=== PATIENT | male | born 1960 | race Asian ===

== ENCOUNTER 2023-06-06 21:49 | Inpatient (IN) | payer OTHER ==
[~2023-06-06] VITALS: Ht 172.7 cm; Wt 69.1 kg
[2023-06-08] MEDS ORDERED: TACR1CAP22 PO (01:35)
[2023-06-08] MEDS ORDERED: APIX5TAB PO (01:35)
[2023-06-08] MEDS ORDERED: TAMS-11 PO (01:35)
[2023-06-08] MEDS ORDERED: ATOR10TA69 PO (01:35)
[2023-06-08] MEDS ORDERED: CARV12.545 PO (01:35)
[2023-06-08] MEDS ORDERED: ASPI-1406 PO (01:35)
[2023-06-08] MEDS ORDERED: LOSA50TA41 PO (01:35)
[2023-06-08] MEDS ORDERED: MYCO250C MT (01:35)
[2023-06-08] MEDS ORDERED: LEVO150T8 PO (01:35)
[2023-06-08] MEDS ORDERED: FOLI-43 PO (01:35)
[2023-06-08] MEDS ORDERED: TACR1CAP22 MT (01:35)
[2023-06-15 23:30] VITALS: BP 140/119; PULSE 98; RESP 10
[2023-06-15 23:45] VITALS: BP 133/74; PULSE 104; RESP 10
[2023-06-15] MEDS ORDERED: PHENYLEPHRINE 100 MG in DEXT 5% WATER 240 ML IV PRN (23:45)
[2023-06-15] MEDS ORDERED: DEXTROSE 50% WATER 50ML SYRINGE IV PRN (23:45)
[2023-06-16] VITALS (113 sets, daily range): BP systolic 78–192; BP diastolic 36–148; PULSE 81–146; RESP 0–26; TEMP 96.6–98.4
[2023-06-16] MEDS: VASOPRESSIN 20 UNIT in SODIUM CHLORIDE 0.9% 99 ML IV SCH ×3 (00:04→17:36)
[2023-06-16] MEDS: BLOOD SUGAR DIAGNOSTIC STRIP TEST SCH ×10 (00:05→18:00)
[2023-06-16 00:21] LABS: MEAN CORPUSCULAR HEMOGLOBIN 30.7 pg (28.0-32.0); MEAN CORPUSCULAR HGB CONC 31.5 g/dL (31.0-37.0); MEAN CORPUSCULAR VOLUME 97.5 fL (80.0-94.0); MEAN PLATELET VOLUME 10.3 fl (7.4-10.4); PLATELET 138 x1000/uL (130-400); RED BLOOD CELL COUNT 1.81 mill/uL (4.7-6.1); RED CELL DISTRIBUTION WIDTH 14.5 % (11.6-14.6); WHITE BLOOD COUNT 30.2 x1000/uL (4.5-11.0)
[2023-06-16] MEDS: INSULIN REGULAR 100U/100ML PMX 100 ML IV SCH (00:21)
[2023-06-16 00:27] LABS: DIFFERENTIAL COMMENT 1
[2023-06-16 00:28] LABS: INR 1.1; PROTHROMBIN TIME 11.3 sec (9.6-11.0)
[2023-06-16 00:30] LABS: HEMOGLOBIN. 5.6 g/dL (14.0-18.0)
[2023-06-16 00:31] LABS: HEMATOCRIT. 17.7 % (42.0-52.0)
[2023-06-16 00:44] LABS: CHLORIDE 103 mEq/L (98-107); INDEX HEMOLYSI 1 (1-3); INDEX ICTERIC 1 (1-4); INDEX LIPEMIC 1 (1-3); POTASSIUM 4.6 mEq/L (3.5-5.1); SODIUM 135 mEq/L (136-145)
[2023-06-16] MEDS ORDERED: ALBUMIN HUMAN 25GM/500ML (5%) IV NR ×2 (00:45)
[2023-06-16 00:55] LABS: ALANINE AMINOTRANSFERASE 12 IU/L (13-61); ALBUMIN 2.1 g/dL (3.4-5.0); AMYLASE 35 IU/L (25-115); ASPARTATE AMINOTRANSFERASE 53 IU/L (15-37); BILIRUBIN DIRECT 0.2 mg/dL (0.0-0.2); BILIRUBIN TOTAL 0.2 mg/dL (0.1-1.0); CALCIUM 7.8 mg/dL (8.5-10.1); CARBON DIOXIDE 20 mEq/L (21-32); CREATININE 4.4 mg/dL (0.6-1.3); GLUCOSE 203 mg/dL (70-105); LACTATE DEHYDROGENASE 473 IU/L (100-240); PHOSPHORUS 4.6 mg/dL (2.5-4.9); PROTEIN TOTAL 5.1 g/dL (6.0-8.3); UREA NITROGEN BLOOD 35 mg/dL (7-21)
[2023-06-16 01:06] LABS: CLARITY URINE CLOUDY (CLEAR); COLOR URINE YELLOW (YELLOW); GLUCOSE URINE NEGATIVE (NEGATIVE); KETONES URINE NEGATIVE (NEGATIVE); LEUKOCYTE ESTERASE URINE NEGATIVE (NEGATIVE); NITRITE URINE NEGATIVE (NEGATIVE); OCCULT BLOOD URINE 2+ (NEGATIVE); PROTEIN URINE 1+ (NEGATIVE); SPECIFIC GRAVITY URINE 1.023 (1.005-1.030); UROBILINOGEN URINE 0.2 E.U./dL (0.2-1.0)
[2023-06-16 01:08] LABS: BACTERIA URINE NONE SEEN; SQUAMOUS EPITHELIAL CELL URINE NONE SEEN /lpf (RARE/1+)
[2023-06-16] MEDS ORDERED: NOREPINEPHRINE 32 MG in DEXT 5% WATER 218 ML IV PRN (01:30)
[2023-06-16 01:36] LABS: BG BASE EXCESS -7.2 mmol/L (-2.0-2.0); BG CARBOXYHEMOGLOBIN 0.1 % (0.5-1.5); BG DEOXYHEMOGLOBIN 0.7 % (0.0-5.0); BG FRACTION INSPIRED OXYGEN 100; BG HCO3 ACT 18.8 mmol/L (22.0-26.0); BG METHEMOGLOBIN 0.3 % (0.0-1.5); BG OXYGEN SATURATION 99.3 % (92.0-98.5); BG OXYHEMOGLOBIN 98.9 % (94.0-97.0); BG PCO2 40.5 mmHg (35.0-45.0); BG PH 7.285 (7.350-7.450); BG PO2 428.8 mmHg (75.0-100.0); BG SAMPLE SITE ALINE; BG TOTAL HEMOGLOBIN 6.2 g/dL (12.0-18.0); BG VENT MODE VENT - AC
[2023-06-16 03:22] LABS: RBC URINE 0-2 /hpf (0-2)
[2023-06-16 03:24] LABS: YEAST URINE 1+
[2023-06-16] MEDS ORDERED: METHYLPREDNISOLONE SOD SUCC 2,000 MG in DEXT 5% WATER 100 ML IV NR (06:00)
[2023-06-16] MEDS ORDERED: THIAMINE HCL 500 MG in SODIUM CHLORIDE 0.9% 49 ML IV NR (06:00)
[2023-06-16] MEDS: DOBUTAMINE 250MG PREMIX 250 ML IV SCH (06:35)
[2023-06-16 07:03] LABS: BG CARBOXYHEMOGLOBIN 0.3 % (0.5-1.5); BG DEOXYHEMOGLOBIN 1.2 % (0.0-5.0); BG HCO3 ACT 17.9 mmol/L (22.0-26.0); BG METHEMOGLOBIN 0.4 % (0.0-1.5); BG OXYGEN SATURATION 98.8 % (92.0-98.5); BG OXYHEMOGLOBIN 98.1 % (94.0-97.0); BG PCO2 33.3 mmHg (35.0-45.0); BG PH 7.349 (7.350-7.450); BG PO2 438.1 mmHg (75.0-100.0); BG SAMPLE SITE ALINE; BG VENT MODE VENT - APRV
[2023-06-16 07:19] LABS: HEMOGLOBIN. 7.4 g/dL (14.0-18.0); MEAN CORPUSCULAR HEMOGLOBIN 30.7 pg (28.0-32.0); MEAN CORPUSCULAR HGB CONC 32.3 g/dL (31.0-37.0); MEAN CORPUSCULAR VOLUME 95.3 fL (80.0-94.0); MEAN PLATELET VOLUME 10.1 fl (7.4-10.4); PLATELET 115 x1000/uL (130-400); RED BLOOD CELL COUNT 2.42 mill/uL (4.7-6.1); RED CELL DISTRIBUTION WIDTH 14.1 % (11.6-14.6); WHITE BLOOD COUNT 30.2 x1000/uL (4.5-11.0)
[2023-06-16 07:33] LABS: CHLORIDE 105 mEq/L (98-107); INDEX HEMOLYSI 1 (1-3); INDEX ICTERIC 1 (1-4); INDEX LIPEMIC 1 (1-3); POTASSIUM 4.6 mEq/L (3.5-5.1); SODIUM 134 mEq/L (136-145)
[2023-06-16 07:35] LABS: DIFFERENTIAL COMMENT 1
[2023-06-16 07:40] LABS: INR 1.1; PARTIAL THROMBOPLASTIN TIME 32.8 sec (23.4-31.0); PROTHROMBIN TIME 11.4 sec (9.6-11.0)
[2023-06-16 07:44] LABS: CLARITY URINE TURBID (CLEAR); COLOR URINE YELLOW (YELLOW); GLUCOSE URINE NEGATIVE (NEGATIVE); KETONES URINE NEGATIVE (NEGATIVE); LEUKOCYTE ESTERASE URINE NEGATIVE (NEGATIVE); NITRITE URINE NEGATIVE (NEGATIVE); OCCULT BLOOD URINE 2+ (NEGATIVE); PROTEIN URINE 1+ (NEGATIVE); SPECIFIC GRAVITY URINE 1.025 (1.005-1.030); UROBILINOGEN URINE 0.2 E.U./dL (0.2-1.0)
[2023-06-16 07:50] LABS: ALANINE AMINOTRANSFERASE 7 IU/L (13-61); ALBUMIN 2.2 g/dL (3.4-5.0); AMYLASE 32 IU/L (25-115); ASPARTATE AMINOTRANSFERASE 62 IU/L (15-37); BILIRUBIN DIRECT 0.2 mg/dL (0.0-0.2); BILIRUBIN TOTAL 0.7 mg/dL (0.1-1.0); CALCIUM 7.9 mg/dL (8.5-10.1); CARBON DIOXIDE 20 mEq/L (21-32); CREATININE 4.6 mg/dL (0.6-1.3); GLUCOSE 84 mg/dL (70-105); LACTATE DEHYDROGENASE 511 IU/L (100-240); PHOSPHORUS 5.3 mg/dL (2.5-4.9); PROTEIN TOTAL 5.4 g/dL (6.0-8.3); UREA NITROGEN BLOOD 37 mg/dL (7-21)
[2023-06-16 07:56] LABS: SQUAMOUS EPITHELIAL CELL URINE FEW /lpf (RARE/1+)
[2023-06-16 07:58] LABS: RBC URINE 0-2 /hpf (0-2)
[2023-06-16 07:59] LABS: BACTERIA URINE TRACE
[2023-06-16] MEDS ORDERED: SODIUM BICARBONATE 8.4% 1 MEQ/ML 50ML SYR IV ONE (08:00)
[2023-06-16] MEDS: MYCOPHENOLATE MOFETIL 250MG CAPSULE PO SCH ×2 (08:54→21:43)
[2023-06-16] MEDS: TACROLIMUS 1MG CAPSULE PO SCH (08:55)
[2023-06-16] MEDS ORDERED: VANCOMYCIN 1G PREMIX 200 ML IV NR (09:00)
[2023-06-16] MEDS ORDERED: PIPERACILLIN/TAZOBACTAM 3.375GM/50ML PREMIX IV SCH (10:00)
[2023-06-16] MEDS: PIPERACILLIN/TAZOBACTAM 3.375 G in DEXTROSE 5% WATER 50 ML IV SCH ×2 (10:11→21:44)
[2023-06-16] MEDS ORDERED: ALBUMIN HUMAN 25GM/100ML (25%) IV NR (11:45)
[2023-06-16 12:13] LABS: BG BASE EXCESS -6.1 mmol/L (-2.0-2.0); BG CARBOXYHEMOGLOBIN 0.3 % (0.5-1.5); BG DEOXYHEMOGLOBIN 1.5 % (0.0-5.0); BG HCO3 ACT 15.9 mmol/L (22.0-26.0); BG METHEMOGLOBIN 0.1 % (0.0-1.5); BG OXYGEN SATURATION 98.5 % (92.0-98.5); BG OXYHEMOGLOBIN 98.1 % (94.0-97.0); BG PCO2 21.2 mmHg (35.0-45.0); BG PH 7.494 (7.350-7.450); BG PO2 173.9 mmHg (75.0-100.0); BG SAMPLE SITE ALINE; BG TOTAL HEMOGLOBIN 8.9 g/dL (12.0-18.0); BG VENT MODE VENT - APRV
[2023-06-16 12:14] LABS: CLARITY URINE CLOUDY (CLEAR); COLOR URINE YELLOW (YELLOW); GLUCOSE URINE NEGATIVE (NEGATIVE); KETONES URINE NEGATIVE (NEGATIVE); LEUKOCYTE ESTERASE URINE TRACE (NEGATIVE); NITRITE URINE NEGATIVE (NEGATIVE); OCCULT BLOOD URINE 2+ (NEGATIVE); PROTEIN URINE 1+ (NEGATIVE); SPECIFIC GRAVITY URINE 1.025 (1.005-1.030); UROBILINOGEN URINE 0.2 E.U./dL (0.2-1.0)
[2023-06-16 12:23] LABS: HEMATOCRIT. 24.5 % (42.0-52.0); MEAN CORPUSCULAR HGB CONC 32.7 g/dL (31.0-37.0); MEAN CORPUSCULAR VOLUME 94.6 fL (80.0-94.0); MEAN PLATELET VOLUME 10.1 fl (7.4-10.4); PLATELET 75 x1000/uL (130-400); RED BLOOD CELL COUNT 2.59 mill/uL (4.7-6.1); RED CELL DISTRIBUTION WIDTH 14.6 % (11.6-14.6)
[2023-06-16 12:25] LABS: INR 1.2; PARTIAL THROMBOPLASTIN TIME 29.7 sec (23.4-31.0); PROTHROMBIN TIME 12.6 sec (9.6-11.0)
[2023-06-16 12:28] LABS: COARSE GRANULAR CASTS URINE 0-5 /lpf; SQUAMOUS EPITHELIAL CELL URINE FEW /lpf (RARE/1+)
[2023-06-16 12:29] LABS: RBC URINE 0-2 /hpf (0-2)
[2023-06-16 12:29] LABS: CHLORIDE 107 mEq/L (98-107); INDEX HEMOLYSI 1 (1-3); INDEX ICTERIC 1 (1-4); INDEX LIPEMIC 1 (1-3); POTASSIUM 3.8 mEq/L (3.5-5.1); SODIUM 137 mEq/L (136-145)
[2023-06-16 12:30] LABS: BACTERIA URINE 2+
[2023-06-16 12:37] LABS: ALANINE AMINOTRANSFERASE 6 IU/L (13-61); ALBUMIN 2.1 g/dL (3.4-5.0); AMYLASE 24 IU/L (25-115); ASPARTATE AMINOTRANSFERASE 68 IU/L (15-37); BILIRUBIN DIRECT 0.4 mg/dL (0.0-0.2); BILIRUBIN TOTAL 0.9 mg/dL (0.1-1.0); CALCIUM 8.3 mg/dL (8.5-10.1); CARBON DIOXIDE 21 mEq/L (21-32); CREATININE 4.3 mg/dL (0.6-1.3); GLUCOSE 205 mg/dL (70-105); LACTATE DEHYDROGENASE 531 IU/L (100-240); PHOSPHORUS 3.3 mg/dL (2.5-4.9); PROTEIN TOTAL 4.9 g/dL (6.0-8.3); UREA NITROGEN BLOOD 39 mg/dL (7-21)
[2023-06-16 12:45] LABS: DIFFERENTIAL COMMENT 1
[2023-06-16 13:06] LABS: PLATELET ESTIMATE DECREASED
[2023-06-16 13:11] LABS: PLATELET ESTIMATE NORMAL
[2023-06-16 13:34] LABS: NUCLEATED RED BLOOD CELLS 1 /100 WBC
[2023-06-16 13:35] LABS: PLATELET ESTIMATE SLIGHTLY DECREASED
[2023-06-16] MEDS: THIAMINE HCL 100 MG in SODIUM CHLORIDE 0.9% 49 ML IV SCH ×2 (13:47→22:30)
[2023-06-16] MEDS: METHYLPREDNISOLONE SOD SUCC 500 MG in DEXT 5% WATER 100 ML IV SCH ×2 (13:48→22:30)
[2023-06-16] MEDS ORDERED: METOLAZONE 10MG TABLET PO NR (14:30)
[2023-06-16] MEDS ORDERED: FUROSEMIDE 20MG/2ML VIAL IVP NR (14:30)
[2023-06-16] MEDS ORDERED: FUROSEMIDE 100MG/10ML VIAL IVP NR (16:45)
[2023-06-16] MEDS ORDERED: METOLAZONE 5MG TABLET PO NR (17:00)
[2023-06-16 18:09] LABS: BG BASE EXCESS -6.8 mmol/L (-2.0-2.0); BG CARBOXYHEMOGLOBIN 0.3 % (0.5-1.5); BG DEOXYHEMOGLOBIN 1.1 % (0.0-5.0); BG HCO3 ACT 16.7 mmol/L (22.0-26.0); BG METHEMOGLOBIN 0.3 % (0.0-1.5); BG OXYGEN SATURATION 98.9 % (92.0-98.5); BG OXYHEMOGLOBIN 98.3 % (94.0-97.0); BG PCO2 26.4 mmHg (35.0-45.0); BG PH 7.419 (7.350-7.450); BG PO2 200.4 mmHg (75.0-100.0); BG SAMPLE SITE ALINE; BG TOTAL HEMOGLOBIN 8.8 g/dL (12.0-18.0); BG VENT MODE VENT - APRV
[2023-06-16 18:56] LABS: HEMOGLOBIN. 7.6 g/dL (14.0-18.0); LYMPHOCYTES % 1.5 % (20.0-50.0); MEAN CORPUSCULAR HEMOGLOBIN 31.2 pg (28.0-32.0); MEAN CORPUSCULAR HGB CONC 33.1 g/dL (31.0-37.0); MEAN CORPUSCULAR VOLUME 94.2 fL (80.0-94.0); MEAN PLATELET VOLUME 10.2 fl (7.4-10.4); NEUTROPHILS % 92.5 % (40.0-76.0); PLATELET 62 x1000/uL (130-400); RED BLOOD CELL COUNT 2.44 mill/uL (4.7-6.1); RED CELL DISTRIBUTION WIDTH 14.7 % (11.6-14.6); WHITE BLOOD COUNT 15.2 x1000/uL (4.5-11.0)
[2023-06-16 19:00] LABS: CLARITY URINE CLEAR (CLEAR); COLOR URINE YELLOW (YELLOW); GLUCOSE URINE TRACE (NEGATIVE); KETONES URINE NEGATIVE (NEGATIVE); LEUKOCYTE ESTERASE URINE NEGATIVE (NEGATIVE); NITRITE URINE NEGATIVE (NEGATIVE); OCCULT BLOOD URINE 2+ (NEGATIVE); PH URINE 6.5 (4.5-8.0); PROTEIN URINE 1+ (NEGATIVE); UROBILINOGEN URINE 0.2 E.U./dL (0.2-1.0)
[2023-06-16 19:03] LABS: BACTERIA URINE NONE SEEN; SQUAMOUS EPITHELIAL CELL URINE NONE SEEN /lpf (RARE/1+)
[2023-06-16 19:04] LABS: CHLORIDE 105 mEq/L (98-107); INDEX HEMOLYSI 1 (1-3); INDEX ICTERIC 1 (1-4); INDEX LIPEMIC 1 (1-3); POTASSIUM 3.6 mEq/L (3.5-5.1); SODIUM 138 mEq/L (136-145)
[2023-06-16 19:12] LABS: ALANINE AMINOTRANSFERASE 8 IU/L (13-61); ALBUMIN 2.7 g/dL (3.4-5.0); AMYLASE 20 IU/L (25-115); ASPARTATE AMINOTRANSFERASE 72 IU/L (15-37); BILIRUBIN DIRECT 0.5 mg/dL (0.0-0.2); BILIRUBIN TOTAL 1.4 mg/dL (0.1-1.0); CALCIUM 8.2 mg/dL (8.5-10.1); CARBON DIOXIDE 18 mEq/L (21-32); GLUCOSE 272 mg/dL (70-105); LACTATE DEHYDROGENASE 574 IU/L (100-240); PHOSPHORUS 4.3 mg/dL (2.5-4.9); PROTEIN TOTAL 5.4 g/dL (6.0-8.3); UREA NITROGEN BLOOD 39 mg/dL (7-21)
[2023-06-16 19:14] LABS: INR 1.4; PARTIAL THROMBOPLASTIN TIME 34.5 sec (23.4-31.0); PROTHROMBIN TIME 14.3 sec (9.6-11.0)
[2023-06-16 19:23] LABS: DIFFERENTIAL COMMENT 1
[2023-06-16 19:29] LABS: YEAST URINE NONE SEEN
[2023-06-16] MEDS: METOLAZONE 5MG TABLET PO SCH (21:43)
[2023-06-16] MEDS: FUROSEMIDE 100MG/10ML VIAL IVP SCH (21:44)
[2023-06-17] VITALS (40 sets, daily range): BP systolic 119–192; BP diastolic 34–145; PULSE 86–119; RESP 10–18; TEMP 96.6–96.8
[2023-06-17 00:34] LABS: BG CARBOXYHEMOGLOBIN 0.3 % (0.5-1.5); BG DEOXYHEMOGLOBIN 1.9 % (0.0-5.0); BG FRACTION INSPIRED OXYGEN 30; BG HCO3 ACT 14.4 mmol/L (22.0-26.0); BG OXYGEN SATURATION 98.1 % (92.0-98.5); BG OXYHEMOGLOBIN 97.8 % (94.0-97.0); BG PCO2 23.9 mmHg (35.0-45.0); BG PH 7.399 (7.350-7.450); BG PO2 153.1 mmHg (75.0-100.0); BG SAMPLE SITE ALINE; BG TOTAL HEMOGLOBIN 9.3 g/dL (12.0-18.0); BG VENT MODE VENT - APRV
[2023-06-17] MEDS: BLOOD SUGAR DIAGNOSTIC STRIP TEST SCH ×5 (00:50→08:22)
[2023-06-17 00:55] LABS: CLARITY URINE CLEAR (CLEAR); COLOR URINE YELLOW (YELLOW); GLUCOSE URINE TRACE (NEGATIVE); KETONES URINE NEGATIVE (NEGATIVE); LEUKOCYTE ESTERASE URINE NEGATIVE (NEGATIVE); NITRITE URINE NEGATIVE (NEGATIVE); OCCULT BLOOD URINE 2+ (NEGATIVE); PH URINE 6.5 (4.5-8.0); PROTEIN URINE NEGATIVE (NEGATIVE); UROBILINOGEN URINE 0.2 E.U./dL (0.2-1.0)
[2023-06-17 00:57] LABS: HEMOGLOBIN. 8.6 g/dL (14.0-18.0); MEAN CORPUSCULAR HGB CONC 33.1 g/dL (31.0-37.0); MEAN CORPUSCULAR VOLUME 93.4 fL (80.0-94.0); MEAN PLATELET VOLUME 10.9 fl (7.4-10.4); PLATELET 59 x1000/uL (130-400); RED BLOOD CELL COUNT 2.79 mill/uL (4.7-6.1); RED CELL DISTRIBUTION WIDTH 15.1 % (11.6-14.6); WHITE BLOOD COUNT 13.8 x1000/uL (4.5-11.0)
[2023-06-17] MEDS: VASOPRESSIN 20 UNIT in SODIUM CHLORIDE 0.9% 99 ML IV SCH ×2 (00:57→09:11)
[2023-06-17] MEDS: FUROSEMIDE 100MG/10ML VIAL IVP SCH ×3 (00:57→08:23)
[2023-06-17 00:58] LABS: BACTERIA URINE NONE SEEN; SQUAMOUS EPITHELIAL CELL URINE NONE SEEN /lpf (RARE/1+); WBC URINE NONE SEEN /hpf (0-2); YEAST URINE NONE SEEN
[2023-06-17 01:07] LABS: CHLORIDE 104 mEq/L (98-107); INDEX HEMOLYSI 1 (1-3); INDEX ICTERIC 1 (1-4); INDEX LIPEMIC 1 (1-3); POTASSIUM 3.5 mEq/L (3.5-5.1); SODIUM 137 mEq/L (136-145)
[2023-06-17 01:15] LABS: ALANINE AMINOTRANSFERASE 7 IU/L (13-61); ALBUMIN 2.8 g/dL (3.4-5.0); AMYLASE 16 IU/L (25-115); ASPARTATE AMINOTRANSFERASE 77 IU/L (15-37); BILIRUBIN DIRECT 0.5 mg/dL (0.0-0.2); BILIRUBIN TOTAL 0.9 mg/dL (0.1-1.0); CALCIUM 8.5 mg/dL (8.5-10.1); CARBON DIOXIDE 17 mEq/L (21-32); CREATININE 4.2 mg/dL (0.6-1.3); GLUCOSE 345 mg/dL (70-105); LACTATE DEHYDROGENASE 610 IU/L (100-240); PHOSPHORUS 5.1 mg/dL (2.5-4.9); PROTEIN TOTAL 5.6 g/dL (6.0-8.3); UREA NITROGEN BLOOD 43 mg/dL (7-21)
[2023-06-17] MEDS: METOLAZONE 5MG TABLET PO SCH ×3 (01:15→08:23)
[2023-06-17 01:17] LABS: RBC URINE 0-2 /hpf (0-2)
[2023-06-17 01:43] LABS: DIFFERENTIAL COMMENT 1
[2023-06-17 01:45] LABS: PLATELET ESTIMATE DECREASED
[2023-06-17] MEDS: INSULIN REGULAR 100U/100ML PMX 100 ML IV SCH ×2 (02:08→06:25)
[2023-06-17] MEDS ORDERED: INSULIN REGULAR (HUMULIN R) 300UNITS/3ML VIAL IV NR (02:30)
[2023-06-17 02:38] LABS: INR 1.6; PARTIAL THROMBOPLASTIN TIME 35.9 sec (23.4-31.0); PROTHROMBIN TIME 16.4 sec (9.6-11.0)
[2023-06-17] MEDS ORDERED: ALBUMIN HUMAN 25GM/100ML (25%) IV NR (03:30)
[2023-06-17] MEDS ORDERED: KCL 20MEQ/100ML PREMIX 100 ML IV SCH (03:45)
[2023-06-17] MEDS: KCL 20MEQ/100ML PREMIX 100 ML IV SCH ×2 (04:27→05:35)
[2023-06-17] MEDS: METHYLPREDNISOLONE SOD SUCC 500 MG in DEXT 5% WATER 100 ML IV SCH (05:35)
[2023-06-17] MEDS: DOBUTAMINE 250MG PREMIX 250 ML IV SCH (06:24)
[2023-06-17] MEDS: THIAMINE HCL 100 MG in SODIUM CHLORIDE 0.9% 49 ML IV SCH (06:24)
[2023-06-17 06:44] LABS: BG BASE EXCESS -7.5 mmol/L (-2.0-2.0); BG CARBOXYHEMOGLOBIN 0.3 % (0.5-1.5); BG DEOXYHEMOGLOBIN 1.7 % (0.0-5.0); BG FRACTION INSPIRED OXYGEN 30; BG HCO3 ACT 16.1 mmol/L (22.0-26.0); BG METHEMOGLOBIN 0.3 % (0.0-1.5); BG OXYGEN SATURATION 98.3 % (92.0-98.5); BG OXYHEMOGLOBIN 97.7 % (94.0-97.0); BG PCO2 26.6 mmHg (35.0-45.0); BG PH 7.399 (7.350-7.450); BG PO2 178.4 mmHg (75.0-100.0); BG SAMPLE SITE ALINE; BG TOTAL HEMOGLOBIN 10.5 g/dL (12.0-18.0); BG TOTAL RESPIRATORY RATE 13 b/min; BG VENT MODE VENT - APRV
[2023-06-17 07:21] LABS: CHLORIDE 103 mEq/L (98-107); INDEX HEMOLYSI 1 (1-3); INDEX ICTERIC 1 (1-4); INDEX LIPEMIC 1 (1-3); POTASSIUM 4.1 mEq/L (3.5-5.1); SODIUM 135 mEq/L (136-145)
[2023-06-17 07:24] LABS: CARBON DIOXIDE 18 mEq/L (21-32)
[2023-06-17 07:32] LABS: ALANINE AMINOTRANSFERASE 7 IU/L (13-61); ALBUMIN 3.3 g/dL (3.4-5.0); AMYLASE 17 IU/L (25-115); ASPARTATE AMINOTRANSFERASE 91 IU/L (15-37); BILIRUBIN DIRECT 0.3 mg/dL (0.0-0.2); BILIRUBIN TOTAL 0.6 mg/dL (0.1-1.0); CALCIUM 8.3 mg/dL (8.5-10.1); CREATININE 4.1 mg/dL (0.6-1.3); GLUCOSE 303 mg/dL (70-105); LACTATE DEHYDROGENASE 649 IU/L (100-240); UREA NITROGEN BLOOD 46 mg/dL (7-21)
[2023-06-17 07:36] LABS: INR 1.9; PARTIAL THROMBOPLASTIN TIME 37.7 sec (23.4-31.0); PROTHROMBIN TIME 19.3 sec (9.6-11.0)
[2023-06-17 07:43] LABS: HEMATOCRIT. 24.2 % (42.0-52.0); MEAN CORPUSCULAR HEMOGLOBIN 30.9 pg (28.0-32.0); MEAN CORPUSCULAR VOLUME 93.7 fL (80.0-94.0); PLATELET 73 x1000/uL (130-400); RED BLOOD CELL COUNT 2.59 mill/uL (4.7-6.1); RED CELL DISTRIBUTION WIDTH 14.9 % (11.6-14.6); WHITE BLOOD COUNT 19.8 x1000/uL (4.5-11.0)
[2023-06-17 07:47] LABS: CLARITY URINE CLEAR (CLEAR); COLOR URINE YELLOW (YELLOW); GLUCOSE URINE 1+ (NEGATIVE); KETONES URINE NEGATIVE (NEGATIVE); LEUKOCYTE ESTERASE URINE NEGATIVE (NEGATIVE); NITRITE URINE NEGATIVE (NEGATIVE); OCCULT BLOOD URINE 1+ (NEGATIVE); PH URINE 6.5 (4.5-8.0); PROTEIN URINE NEGATIVE (NEGATIVE); SPECIFIC GRAVITY URINE 1.009 (1.005-1.030); UROBILINOGEN URINE 0.2 E.U./dL (0.2-1.0)
[2023-06-17 08:06] LABS: DIFFERENTIAL COMMENT 1
[2023-06-17 08:07] LABS: LACTIC ACID 3.6 mmol/L (0.4-2.0)
[2023-06-17 08:43] LABS: RBC URINE 0-2 /hpf (0-2); WBC URINE 0-2 /hpf (0-2)
[2023-06-17 08:44] LABS: SQUAMOUS EPITHELIAL CELL URINE NONE SEEN /lpf (RARE/1+)
[2023-06-17 08:45] LABS: BACTERIA URINE 1+
[2023-06-17] MEDS: MYCOPHENOLATE MOFETIL 250MG CAPSULE PO SCH (08:57)
[2023-06-17] MEDS: TACROLIMUS 1MG CAPSULE PO SCH (08:57)
[2023-06-17 10:58] LABS: ANISOCYTOSIS 1+; PLATELET ESTIMATE DECREASED
== END 2023-06-17 15:29 | DRG 950 ==
LOC: MICUSO 21:49 → UNDOADMIN 21:49 → MICUSO 06-15 21:50 → UNDODISIN 06-17 15:29
PROVIDERS: ADMIT Internal Medicine
PROC: 0FT00ZZ Resection of Liver, Open Approach (ICD-10-PCS; principal; 2023-06-15)
DX: R40.20 Unspecified coma; E87.1 Hypo-osmolality and hyponatremia
CPT/HCPCS: 36415; 36600; 71045; 71250; 74176; 76700; 80053; 81003; 82150; 82248; 82375; 82805; 82962; 83605; 83615; 83735; 84100; 85025; 86850; 86900; 86920; 87070; 93005; 94003; J1250; J1815; J1940; J2543; J2930; J3370; J3411; J3480; J3490; J7050; J7060; J7507; J7517; P9016; P9041; P9047